=== PATIENT | male | born 1960 | race Two or more races ===

== ENCOUNTER → 2023-11-19 06:29 | Day surgery (SDC) | payer OTHER, SELFPAY | LOC: GI 06:29 | PROVIDERS: ATTENDING PHYSICIAN Surgery | DX: Z12.11 Encounter for screening for malignant neoplasm of colon (principal); Z86.010 Personal history of colon polyps; R19.5 Other fecal abnormalities; K64.9 Unspecified hemorrhoids; D12.3 Benign neoplasm of transverse colon; K62.1 Rectal polyp | CPT/HCPCS: 45385; 45380; 88305 ==